=== PATIENT | female | born 1985 ===

== ENCOUNTER 2017-04-01 01:18 | Emergency (ER) | payer SELFPAY ==
[2017-04-01 01:36] VITALS: BMI 31.5
[2017-04-01 01:39] VITALS: BP 141/97; PULSE 119; RESP 18; TEMP 98.5; O2SAT 96
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
== END 2017-04-01 04:25 | disposition home or self-care (01) ==
LOC: H.ER 01:18
DX: S01.01XA Laceration without foreign body of scalp, initial encounter (principal); W22.8XXA Striking against or struck by other objects, initial encounter; Y92.89 Other specified places as the place of occurrence of the external cause

== ENCOUNTER 2018-01-30 02:07 | Emergency (ER) | payer OTHER ==
[2018-01-30 02:07] VITALS: BMI 31.5
[2018-01-30 02:38] VITALS: RESP 16
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
[2018-01-30] MEDS ORDERED: Iohexol 300 100 ML IJ ONE (05:09)
[2018-01-30] MEDS ORDERED: Sodium Chloride 0.9% 50 ML IV ONE (05:09)
[2018-01-30 05:14] LABS: BASO # 0.1 K/uL (0.0-0.2); BASO % 0.9 % (0.0-2.0); EOS % 0.2 % (0.0-4.0); HEMOGLOBIN 14.3 g/dL (12.0-16.0); LYMPH # 2.1 K/uL (1.0-4.3); LYMPH % 13.4 % (20.0-40.0); MEAN CELL VOLUME 90.3 fl (81.0-99.0); MEAN CORPUSCULAR HEMOGLOBIN 30.8 pg (27.0-31.0); MEAN CORPUSCULAR HGB CONC 34.1 g/dL (33.0-37.0); MEAN PLATELET VOLUME 7.2 fl (7.2-11.7); MONO # 0.7 K/uL (0.0-0.8); MONO % 4.7 % (0.0-10.0); NEUT # 12.7 K/uL (1.8-7.0); NEUT % 80.8 % (50.0-75.0); NRBC % 0.1 % (0.0-0.0); RBC 4.65 Mil/uL (3.80-5.20); RED CELL DISTRIBUTION WIDTH 12.4 % (11.5-14.5); WHITE BLOOD COUNT 15.7 K/uL (4.8-10.8)
[2018-01-30 05:26] LABS: ALB/GLOB RATIO 1.2 (1.0-2.1); ALBUMIN 4.4 g/dL (3.5-5.0); ALT/SGPT 122 U/L (9-52); AST/SGOT 93 U/L (14-36); BLOOD UREA NITROGEN 10 mg/dl (7-17); CALCIUM 9.4 mg/dL (8.4-10.2); GFR NON-AFRICAN AMERICAN > 60
[2018-01-30] MEDS ORDERED: Sodium Chloride 0.9% 1,000 ML IV STA (06:00)
[2018-01-30 06:09] VITALS: BP 117/72
[2018-01-30 06:35] LABS: BARBITURATES, UR NEGATIVE (NEGATIVE); BENZODIAZEPINES, UR NEGATIVE (NEGATIVE); OPIATES, UR NEGATIVE (NEGATIVE); PHENCYCLIDINE, UR NEGATIVE (NEGATIVE)
[2018-01-30 06:47] VITALS: PULSE 99; TEMP 98.1
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
[2018-01-31 03:44] VITALS: O2SAT 99
== END 2018-01-30 06:44 | disposition home or self-care (01) ==
LOC: H.ER 02:07
DX: S09.90XA Unspecified injury of head, initial encounter (principal); S20.319A Abrasion of unspecified front wall of thorax, initial encounter; S02.2XXA Fracture of nasal bones, initial encounter for closed fracture; F10.10 Alcohol abuse, uncomplicated; V43.62XA Car passenger injured in collision with other type car in traffic accident, initial encounter; Y92.410 Unspecified street and highway as the place of occurrence of the external cause
CPT/HCPCS: 70450; 70486; 71260; 80053; 85025; 99284; G0480; J7030; Q9967